=== PATIENT | male | born 1975 | race Two or more races ===

== ENCOUNTER 2021-10-01 08:46 | Emergency (ER) | payer BC ==
[~2021-10-01] VITALS: Ht 172.7 cm; Wt 83.9 kg
[2021-10-01] MEDS ORDERED: TDAP [DIPH/PERTUSSIS/TET] 0.5 ML VIAL IM ONE ×2 (09:00→09:10)
[2021-10-01] MEDS ORDERED: LIDOCAINE 2% 50 ML MDV IJ ONE (09:09)
--- NOTE | 2021-10-01 09:20 | NUR ---
suture - left upper eye brow done by Dr. romero
--- NOTE | 2021-10-01 09:20 | NUR ---
TDAP given IM
--- NOTE | 2021-10-01 09:31 | NUR ---
wound cleaned, sterile dressing with topical antibiotics applied
[2021-10-01 09:38] VITALS: BP 112/78
--- NOTE | 2021-10-01 09:38 | NUR ---
Patient discharged to home in stable condition. Written and verbal after care instructions given. Patient verbalizes understanding of instruction.
== END 2021-10-01 09:39 | disposition home or self-care (01) ==
LOC: ER 08:53
DX: S01.112A Laceration without foreign body of left eyelid and periocular area, initial encounter (principal); W22.8XXA Striking against or struck by other objects, initial encounter; Y93.89 Activity, other specified; Y92.89 Other specified places as the place of occurrence of the external cause; Y99.8 Other external cause status
CPT/HCPCS: 12011; 90471; 90715; 99283; A6403; J3490